=== PATIENT | female | born 1970 | race Caucasian/White ===

== ENCOUNTER → 2020-03-16 | Outpatient (CLI) | payer MEDICAID, SELFPAY ==
[~2020-03-16] MED LIST: *ANUSOI RE; ACET500C OR; COLA100C2 OR; IBUP600T OR; MILKSUS OR; PRENTAB8 PO
== END ==
LOC: M OUTALCOH 10:30
PROVIDERS: ATTEND Psychiatry & Neurology Addiction Medicine
DX: F10.20 Alcohol dependence, uncomplicated (principal)

== ENCOUNTER 2020-03-24 13:00 | Outpatient (RCR) | payer MEDICAID, SELFPAY | END 2020-03-30 | LOC: M OUTALCOH 13:00 | PROVIDERS: ATTEND Psychiatry & Neurology Addiction Medicine | DX: F10.20 Alcohol dependence, uncomplicated (principal); F17.200 Nicotine dependence, unspecified, uncomplicated ==

== ENCOUNTER 2020-04-03 14:34 | Outpatient (RCR) | payer MEDICAID, SELFPAY | END 2020-04-29 | LOC: M OUTALCOH 14:34 | PROVIDERS: ATTEND Psychiatry & Neurology Addiction Medicine | DX: F10.20 Alcohol dependence, uncomplicated (principal); F17.200 Nicotine dependence, unspecified, uncomplicated ==

== ENCOUNTER 2020-05-07 15:15 | Outpatient (RCR) | payer MEDICAID | END 2020-05-30 | LOC: M OUTALCOH 15:15 | PROVIDERS: ATTEND Psychiatry & Neurology Addiction Medicine | DX: F10.20 Alcohol dependence, uncomplicated (principal); F17.200 Nicotine dependence, unspecified, uncomplicated ==

== ENCOUNTER 2023-07-29 17:22 | Emergency (ER) | payer MEDICAID, SELFPAY ==
[~2023-07-29] VITALS: Ht 165.1 cm; Wt 81.5 kg
[2023-07-29] MEDS ORDERED: LORazepam 2 MG/ML 1ML VIAL IV PRN (17:35)
[2023-07-29] MEDS ORDERED: levETIRAcetam INJection 1,000 MG in D5W 100 ML IV ONE (17:35)
[2023-07-29 18:04] LABS: BASO # 0.1 10^3/uL (0.0-0.2); BASO % 0.8 % (0.0-1.0); EOS # 0.3 10^3/uL (0.0-0.5); EOS % 3.7 % (0.0-3.0); HEMATOCRIT 39.4 % (36.0-47.0); HEMOGLOBIN 13.2 g/dl (12.0-15.5); LYMPH # 1.7 10^3/uL (1.5-5.0); LYMPH % 22.9 % (24.0-44.0); MEAN CORPUSCULAR HEMOGLOBIN 26.5 pg (27.0-33.0); MEAN CORPUSCULAR HGB CONC 33.5 g/dl (32.0-36.5); MEAN CORPUSCULAR VOLUME 79.1 fl (80.0-96.0); MONO # 0.4 10^3/uL (0.0-0.8); NEUTROPHILS # 5.1 10^3/uL (1.5-8.5); NEUTROPHILS % 66.9 % (36.0-66.0); PLATELET COUNT, AUTOMATED 363 10^3/uL (150-450); RED BLOOD COUNT 4.98 10^6/uL (4.00-5.40); WHITE BLOOD COUNT 7.6 10^3/uL (4.0-10.0)
[2023-07-29 18:35] LABS: ALBUMIN 4.1 G/DL (3.2-5.2); ALKALINE PHOSPHATASE 149 U/L (46-116); ALT/SGPT 22 U/L (7.0-40); AST/SGOT 24 U/L (<34); BILIRUBIN,DIRECT < 0.1 MG/DL (<0.4); BILIRUBIN,TOTAL 0.2 MG/DL (0.3-1.2); BLOOD UREA NITROGEN 15 MG/DL (9-23); CALCIUM LEVEL 8.7 MG/DL (8.5-10.1); CARBON DIOXIDE LEVEL 23 MMOL/L (20-31); CHLORIDE LEVEL 108 MMOL/L (98-107); CREATININE FOR GFR 0.44 MG/DL (0.55-1.30); GLOMERULAR FILTRATION RATE > 60.0 (>51); GLUCOSE, FASTING 142 MG/DL (60-100); MAGNESIUM LEVEL 1.8 MG/DL (1.8-2.4); POTASSIUM SERUM 3.9 MMOL/L (3.5-5.1); SODIUM LEVEL 141 MMOL/L (136-145)
[2023-07-29] MEDS ORDERED: LORazepam 2 MG/ML 1ML VIAL IV STA (19:05)
[2023-07-29 20:31] VITALS: BP 183/82
[2023-07-29 20:40] VITALS: TEMP 98; O2SAT 95
== END 2023-07-29 21:22 | disposition home or self-care (01) ==
LOC: M ED 17:22
DX: G43.909 Migraine, unspecified, not intractable, without status migrainosus (principal); Z86.73 Personal history of transient ischemic attack (TIA), and cerebral infarction without residual deficits; Z88.0 Allergy status to penicillin; Z79.899 Other long term (current) drug therapy
CPT/HCPCS: 70450; 80048; 80076; 80180; 83605; 83735; 85025; 93041; 94760; 96365; 96366; 96375; 99285; J1953; J2060

== ENCOUNTER → 2024-02-20 | Outpatient (CLI) | payer MEDICAID, OTHER, SELFPAY | LOC: M PLALAB 13:42 | PROVIDERS: ATTEND Psychiatry & Neurology Neurology | DX: R51.9 Headache, unspecified (principal) ==